=== PATIENT | male | born 1950 | race Caucasian/White ===

== ENCOUNTER 2019-05-21 06:22 | Day surgery (SDC) | payer MEDICAID ==
[~2019-05-21] VITALS: Ht 175.3 cm; Wt 90.7 kg
[2019-05-21] MEDS ORDERED: LACTATED RINGERS 1,000 ML IV SCH (06:30)
[2019-05-21] MEDS ORDERED: BUPIVACAINE HCL 0.5% (5MG/ML) 50ML ONE (07:01)
[2019-05-21] MEDS ORDERED: PROPOFOL 10MG/ML 100ML 100 ML IV ONE (07:22)
[2019-05-21] MEDS ORDERED: KETOROLAC 30MG/ML VIAL ONE (07:23)
[2019-05-21] MEDS ORDERED: LIDOCAINE HCL/PF 1% 10 MG/ML 5ML VIAL ONE (07:23)
[2019-05-21] MEDS ORDERED: CEFAZOLIN SODIUM 1000MG/VIAL ONE (07:23)
[2019-05-21] MEDS ORDERED: PHENYLEPHRINE HCL 10 MG/ML 1ML (IV VIAL) IV ONE (07:35)
[2019-05-21] MEDS ORDERED: SODIUM CHLORIDE 0.9% 10ML VIAL ONE (07:35)
[2019-05-21] MEDS ORDERED: FENTANYL CITRATE/PF 50MCG/ML 2ML VIAL ONE (07:59)
[2019-05-21] MEDS ORDERED: EPHEDRINE SULFATE 50MG/ML VIAL ONE (08:03)
[2019-05-21] MEDS ORDERED: SKIN ADHESIVE 0.7 GM EA TOP ONE ×3 (08:06→08:11)
== END 2019-05-21 09:45 | disposition home or self-care (01) ==
LOC: OR 06:22
PROVIDERS: ATTEND Surgery
DX: L72.11 Pilar cyst (principal); M79.89 Other specified soft tissue disorders
CPT/HCPCS: 21011; 21012; 88305; G0168; J0690; J1885; J2370; J2704; J3010; J3490